=== PATIENT | female | born 1995 | race African-American/Black ===

== ENCOUNTER 2018-06-09 10:37 | Inpatient (IN) | payer OTHER ==
[~2018-06-09] VITALS: Ht 170.2 cm; Wt 72.2 kg
[~2018-06-09 10:37] MED LIST: **UNRESOLVED NON-FORMULARY MED ORDER XX SCH
[2018-06-09 14:40] VITALS: BP 148/87
[2018-06-09] MEDS ORDERED: FLUO20CA19 PO (14:53)
[2018-06-09] MEDS ORDERED: ZONI25CA2 PO (14:53)
[2018-06-09] MEDS ORDERED: PRAZ2CAP PO (14:53)
[2018-06-09] MEDS ORDERED: TRAZ-160 PO (14:57)
[2018-06-09] MEDS ORDERED: RIZA10TA4 PO (14:57)
[2018-06-09] MEDS ORDERED: HYDR1CAP25 PO (14:57)
[2018-06-09] MEDS ORDERED: ZONISAMIDE 50 MG CAP (ZONEGRAN) PO PRN (16:15)
[2018-06-09] MEDS ORDERED: hydrOXYzine 50 MG TAB PO PRN (16:15)
[2018-06-09] MEDS: IBUPROFEN 800 MG TAB PO PRN (16:17)
[2018-06-09] MEDS: DOXYCYCLINE HYCLATE 100 MG in D5W MINI-BAG PLUS 100 ML IV SCH (16:18)
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
[2018-06-09] MEDS: cefoTEtan DISODIUM 2 GM in D5W MINI-BAG PLUS 50 ML IV SCH (17:26)
[2018-06-09] MEDS ORDERED: ENTER DRUG NAME HERE (PATIENT'S OWN MED) PO PRN (17:30)
[2018-06-09 20:00] VITALS: BP 143/71
[2018-06-09] MEDS: FLUoxetine 20 MG CAP PO SCH (21:32)
[2018-06-09] MEDS: metroNIDAZOLE (FLAGYL) 500 MG TAB PO SCH (21:32)
[2018-06-10] MEDS: DOXYCYCLINE HYCLATE 100 MG in D5W MINI-BAG PLUS 100 ML IV SCH ×2 (04:36→17:09)
[2018-06-10 04:43] VITALS: BP 128/60
[2018-06-10 05:00] LABS: BASO % 0.4 % (0.0-1.0); EOS # 0.4 10^3/uL (0.0-0.50); EOS % 8.9 % (0.0-3.0); HEMATOCRIT 34.4 % (36.0-47.0); HEMOGLOBIN 11.6 g/dl (12.0-15.5); LYMPH # 1.2 10^3/uL (1.5-6.5); LYMPH % 23.2 % (24.0-44.0); MEAN CORPUSCULAR HEMOGLOBIN 29.7 pg (27.0-33.0); MEAN CORPUSCULAR HGB CONC 33.7 g/dl (32.0-36.5); MEAN CORPUSCULAR VOLUME 88.2 fl (80.0-96.0); MONO # 0.6 10^3/uL (0.0-0.8); MONO % 11.1 % (0.0-5.0); NEUTROPHILS # 2.7 10^3/uL (1.8-7.7); NEUTROPHILS % 55.4 % (36.0-66.0); PLATELET COUNT, AUTOMATED 401 10^3/uL (150-450)
[2018-06-10] MEDS: cefoTEtan DISODIUM 2 GM in D5W MINI-BAG PLUS 50 ML IV SCH ×2 (05:47→17:55)
--- NOTE | 2018-06-10 07:36 | IPNPDOC ---
Text Note Date of Service The patient was seen on 06/10/18. NOTE Admission for IV Abx with dx of PID, possible TOA vs hydrosalpinx bilat Overnight no complaints other than some diarrhea which she did not have prior to admission. No signif pain, in fact states that her lower abdom cramping is improved from yesterday. Eating OK with no N/V. The diarrhea has no purulence or blood in it. No CP/LP/SOB. VSSAF throughout NAD A&O Abdom soft, lower abdom tenderness improved from yest with palpation CBC this AM nl, WBC 5 a/p: PID, known chlamydia last week, possible TOA vs hydrosalpinx bilat. Doing well, improving. Will keep an eye on her diarrhea, low suspicion for C Diff at this point. Plan for 48 hrs IV abx and PO meds afterwards for total of 2 weeks. SBAR to call team, Dr Lund and VINAYAK Mejias. Sessions MD BAUTISTA,Baldemar, I+O VSBaldemar I+O Laboratory Tests 06/10/18 04:52 Red Blood Count 3.90 L, Mean Corpuscular Volume 88.2, Mean Corpuscular Hemoglobin 29.7, Mean Corpuscular Hemoglobin Concent 33.7, Red Cell Distribution Width 11.7, Neutrophils (%) (Auto) 55.4, Lymphocytes (%) (Auto) 23.2 L, Monocytes (%) (Auto) 11.1 H, Eosinophils (%) (Auto) 8.9 H, Basophils (%) (Auto) 0.4, Neutrophils # (Auto) 2.7, Lymphocytes # (Auto) 1.2 L, Monocytes # (Auto) 0.6, Eosinophils # (Auto) 0.4, Basophils # (Auto) 0.0 Vital Signs Date Time Temp Pulse Resp B/P (MAP) Pulse Ox O2 Delivery O2 Flow Rate FiO2 06/10/18 04:43 98.2 92 18 128/60 (82) 100 I&O- Last 24 Hours up to 6 AM 06/10/18 06:00 Intake Total 480 ml Output Total 300 ml Balance 180 ml SESSIONS,FANTA Anaya MD Jun 10, 2018 07:36
[2018-06-10] MEDS: metroNIDAZOLE (FLAGYL) 500 MG TAB PO SCH ×2 (08:21→20:11)
[2018-06-10] MEDS: IBUPROFEN 800 MG TAB PO PRN (08:22)
[2018-06-10 13:11] VITALS: BP 134/65
[2018-06-10 20:00] VITALS: BP 145/61
[2018-06-10] MEDS: FLUoxetine 20 MG CAP PO SCH (20:11)
[2018-06-11 04:00] VITALS: BP 126/65
[2018-06-11] MEDS: DOXYCYCLINE HYCLATE 100 MG in D5W MINI-BAG PLUS 100 ML IV SCH ×2 (04:01→14:00)
[2018-06-11] MEDS: cefoTEtan DISODIUM 2 GM in D5W MINI-BAG PLUS 50 ML IV SCH ×2 (05:12→16:54)
[2018-06-11] MEDS: metroNIDAZOLE (FLAGYL) 500 MG TAB PO SCH (08:49)
--- NOTE | 2018-06-11 10:00 | IPNPDOC ---
Text Note Date of Service The patient was seen on 06/11/18. NOTE Admission for IV Abx with dx of PID, possible TOA vs hydrosalpinx bilat, HD3 Overnight no complaints other than persistent watery diarrhea which she did not have prior to admission, noticed first yesterday, no purulence or blood in it and it is not getting worse. No CP/LP/SOB. No signif pain, in fact states that her lower abdom cramping is still improving, much better from admission 2 days ago. Eating OK with no N/V. VSSAF throughout NAD A&O Abdom soft, lower abdom nontender with palpation at all a/p: PID, known chlamydia last week, possible TOA vs hydrosalpinx bilat. Doing well, improving. Very low suspicion for C Diff at this point. Plan for 48 hrs IV abx and PO meds afterwards for total of 2 weeks. Likely d/c tonight after ~1700 meds. RPR, HIV, Hep pnl today after search for prior STD w/u shows these weren't done. Sessions Baldemar HUYNH I+O Baldemar BAUTISTA I+O Vital Signs Date Time Temp Pulse Resp B/P (MAP) Pulse Ox O2 Delivery O2 Flow Rate FiO2 06/11/18 04:00 99.1 80 18 126/65 (85) 100 I&O- Last 24 Hours up to 6 AM 06/11/18 06:00 Intake Total 540 ml Balance 540 ml FANTA RAMÍREZ MD Jun 11, 2018 10:00
[2018-06-11 11:50] LABS: HEPATITIS A ANTIBODY IGM NEGATIVE (NEGATIVE); HEPATITIS B CORE ANTIBODY IGM NEGATIVE (NEGATIVE); HEPATITIS B SURFACE ANTIGEN NEGATIVE (NEGATIVE); HEPATITIS C VIRUS ABY INDEX < 0.0 INDEX (<0.8); HIV 1&2 SCREEN CENTAUR NEGATIVE (NEGATIVE)
[2018-06-11 14:00] VITALS: BP 158/69
[2018-06-11] MEDS ORDERED: METR-201 PO (17:55)
[2018-06-11] MEDS ORDERED: VIST50CA PO (17:55)
[2018-06-11] MEDS ORDERED: LEVA1TAB2 PO (17:55)
--- NOTE | 2018-06-11 17:59 | DS.PDOC ---
Discharge Summary General Date of Admission Jun 09, 2018 at 14:17 Date of Discharge [id number] Discharge Summary ADMITTING DIAGNOSES: Pelvic inflammatory disease, possible tuboovarian abscess or bilat hydrosalpinges, pos chlamydia a week ago DISCHARGE DIAGNOSES: GAYATRI, likely hydrosalpinx HOSPITAL COURSE: Received 48 hours of IV antibiotics. Never had a fever. Had an admission WBC of 5.0. Had a neg HIV and RPR and Hepatitis panel. DISCHARGE MEDICATIONS: Flagyl and Levaquin DISCHARGE INSTRUCTIONS: Nothing in the vagina for 2 weeks. F/U in OBGYN clinic in 2 weeks. Plan on Gardasil soon and also a HSG in 3-4 months to see about future fertility. Sessions Vital Signs/I&Os Vital Signs Date Time Temp Pulse Resp B/P (MAP) Pulse Ox O2 Delivery O2 Flow Rate FiO2 06/11/18 14:00 98.2 85 16 158/69 (98) 100 I&O- Last 24 Hours up to 6 AM 06/11/18 06:00 Intake Total 540 ml Balance 540 ml Discharge Medications Scheduled Fluoxetine Hcl (Fluoxetine HCl) 20 Mg Cap, 20 MG PO DAILY, (Reported) HAS NOT STARTED TAKING YET Prazosin Hcl (Prazosin HCl) 2 Mg Cap, 2 MG PO QHS, (Reported) HAS NOT STARTED YET Scheduled PRN Hydroxyzine Pamoate (Hydroxyzine Pamoate) 25 Mg Cap, 50 MG PO QID PRN for ANXIETY, (Reported) Rizatriptan Benzoate (Rizatriptan Benzoate Odt) 10 Mg Tab, 10 MG PO DAILY PRN for MIGRAINE, (Reported) Trazodone HCl (Trazodone HCl) 50 Mg Tab, 50 MG PO QHS PRN for SLEEP, (Reported) MAY TAKE ONE TO TWO TABLETS Zonisamide (Zonisamide) 25 Mg Cap, 25 MG PO QID PRN for SEIZURES, (Reported) VERIFIED WITH PATIENT THAT IT IS PRN Allergies Coded Allergies: No Known Allergies (Unverified , 06/09/18) SESSIONSFANTA MD Jun 11, 2018 17:59
== END 2018-06-11 18:00 | disposition home or self-care (01) | DRG 759 ==
LOC: M MS4PR 14:17
PROVIDERS: ADMIT Obstetrics & Gynecology; ATTEND Obstetrics & Gynecology
DX: N70.11 Chronic salpingitis (principal); A56.8 Sexually transmitted chlamydial infection of other sites; F32.9 Major depressive disorder, single episode, unspecified; F41.9 Anxiety disorder, unspecified; G43.909 Migraine, unspecified, not intractable, without status migrainosus; Z79.899 Other long term (current) drug therapy